=== PATIENT | male | born 1995 | race Caucasian/White ===

== ENCOUNTER 2019-03-17 12:50 | Emergency (ER) | payer OTHER, MEDICAID ==
[~2019-03-17] VITALS: Ht 175.3 cm; Wt 90.0 kg
[2019-03-17] MEDS ORDERED: LIDOCAINE HCL/PF 1% 10 MG/ML 5ML VIAL IJ ONE (14:30)
[2019-03-17] MEDS ORDERED: MORPHINE SULFATE 10 MG/ML CPJ IV ONE (14:30)
[2019-03-17] MEDS ORDERED: KETOROLAC 30MG/ML VIAL IM ONE (14:30)
[2019-03-17] MEDS ORDERED: BACITRACIN ZINC OINT UDPKT TOP ONE (14:30)
[2019-03-17] MEDS ORDERED: TETANUS, DIPHTHERIA, PERTUSSIS VAC/PF 0.5ML (>7YR OLD) IM ONE (14:30)
[2019-03-17 16:14] VITALS: BP 139/74
== END 2019-03-17 16:16 | disposition home or self-care (01) ==
LOC: ER 12:50
DX: S09.8XXA Other specified injuries of head, initial encounter (principal); S02.2XXA Fracture of nasal bones, initial encounter for closed fracture; S01.21XA Laceration without foreign body of nose, initial encounter; S61.412A Laceration without foreign body of left hand, initial encounter; S63.501A Unspecified sprain of right wrist, initial encounter; Y08.89XA Assault by other specified means, initial encounter; Y93.9 Activity, unspecified; Y92.9 Unspecified place or not applicable
CPT/HCPCS: 12002; 70450; 70486; 72125; 73110; 73130; 90471; 90715; 96372; 96374; 99284; J1885; J2270; J3490